=== PATIENT | female | born 1965 | race African-American/Black ===

== ENCOUNTER 2021-04-01 06:35 | Emergency (ER) | payer MEDICAID ==
[~2021-04-01] VITALS: Ht 165.1 cm; Wt 68.0 kg
[2021-04-01] MEDS ORDERED: ACETAMINOPHEN 325MG TABLET PO ONE (07:00)
[2021-04-01 07:33] VITALS: BP 136/90
[2021-04-01 08:07] LABS: BASOPHILS % 0.9 % (0.0-2.0); EOSINOPHILS % 0.8 % (0.0-5.0); HEMATOCRIT. 34.3 % (36.0-48.0); HEMOGLOBIN. 11.6 g/dL (12.0-16.0); LYMPHOCYTES % 36.3 % (20.0-50.0); MEAN CORPUSCULAR HEMOGLOBIN 30.6 pg (28.0-32.0); MEAN CORPUSCULAR VOLUME 90.4 fL (81.0-99.0); MEAN PLATELET VOLUME 8.6 fl (7.4-10.4); MONOCYTES % 5.6 % (2.0-8.0); NEUTROPHILS % 56.4 % (40.0-76.0); PLATELET 250 x1000/uL (130-400); RED BLOOD CELL COUNT 3.79 mill/uL (4.2-5.4); RED CELL DISTRIBUTION WIDTH 14.4 % (11.6-14.6)
[2021-04-01 08:12] LABS: CHLORIDE 110 mEq/L (98-107)
[2021-04-01] MEDS ORDERED: POTASSIUM CHLORIDE 20MEQ TABLET SR PO ONE (08:45)
== END 2021-04-01 09:19 | disposition home or self-care (01) ==
LOC: ER 06:35
DX: S02.2XXA Fracture of nasal bones, initial encounter for closed fracture (principal); S06.9X0A Unspecified intracranial injury without loss of consciousness, initial encounter; F16.10 Hallucinogen abuse, uncomplicated; I10 Essential (primary) hypertension; J45.909 Unspecified asthma, uncomplicated; E11.9 Type 2 diabetes mellitus without complications; Z88.0 Allergy status to penicillin; Y04.0XXA Assault by unarmed brawl or fight, initial encounter; Y93.89 Activity, other specified; Y92.89 Other specified places as the place of occurrence of the external cause; Y99.8 Other external cause status
CPT/HCPCS: 36415; 70486; 80048; 85025; 99285

== ENCOUNTER 2021-05-28 21:04 | Emergency (ER) | payer MEDICAID ==
[~2021-05-28] VITALS: Ht 167.6 cm; Wt 52.0 kg
[2021-05-28 21:16] VITALS: BP 160/106
[2021-05-28] MEDS ORDERED: ACETAMINOPHEN 325MG TABLET PO STA (23:00)
[2021-05-28] MEDS ORDERED: IPRATROPIUM BROMIDE (0.02%) 0.5MG/2.5ML NEB HHN STA (23:00)
[2021-05-28] MEDS ORDERED: METHYLPREDNISOLONE SOD SUCC 125 MG/2 ML VIAL IM STA (23:00)
[2021-05-28] MEDS ORDERED: ALBUTEROL (0.083%) 2.5MG/3ML NEB HHN STA (23:00)
[2021-05-28] MEDS ORDERED: ONDANSETRON HCL 4MG/2ML INJ IM STA (23:00)
[2021-05-29 00:01] LABS: CLARITY URINE CLOUDY (CLEAR); COLOR URINE YELLOW (YELLOW); KETONES URINE NEGATIVE (NEGATIVE); LEUKOCYTE ESTERASE URINE NEGATIVE (NEGATIVE); NITRITE URINE NEGATIVE (NEGATIVE); OCCULT BLOOD URINE NEGATIVE (NEGATIVE); PROTEIN URINE NEGATIVE (NEGATIVE); SPECIFIC GRAVITY URINE 1.018 (1.005-1.030)
[2021-05-29] MEDS ORDERED: NAPR-681 PO (02:34)
[2021-05-29] MEDS ORDERED: AZIT250T12 PO (02:34)
[2021-05-29] MEDS ORDERED: P20 PO (02:34)
[2021-05-29] MEDS ORDERED: ALBU18HF2 IH (02:34)
== END 2021-05-29 03:02 | disposition home or self-care (01) ==
LOC: ER 21:04
DX: J44.1 Chronic obstructive pulmonary disease with (acute) exacerbation (principal); I10 Essential (primary) hypertension; E78.00 Pure hypercholesterolemia, unspecified; Z20.822 Contact with and (suspected) exposure to COVID-19; Z88.0 Allergy status to penicillin
CPT/HCPCS: 71045; 81003; 87426; 94640; 96372; 99284; J2405; J2930; Z7610